=== PATIENT | female | born 1945 | race Caucasian/White ===

== ENCOUNTER 2017-06-10 15:43 | Emergency (ER) | payer OTHER, MEDICARE ==
[~2017-06-10] VITALS: Ht 157.5 cm; Wt 73.6 kg
[2017-06-10] MEDS ORDERED: PERCOCET 5/31 TABLET PO (18:16)
[2017-06-10 18:30] VITALS: BP 163/87
== END 2017-06-10 18:39 | disposition home or self-care (01) ==
LOC: EME 15:43
DX: S52.592A Other fractures of lower end of left radius, initial encounter for closed fracture (principal); S52.615A Nondisplaced fracture of left ulna styloid process, initial encounter for closed fracture; M85.832 Other specified disorders of bone density and structure, left forearm; W00.0XXA Fall on same level due to ice and snow, initial encounter; E03.9 Hypothyroidism, unspecified
CPT/HCPCS: 73100; 73110; 99281; 99284; J3010

== ENCOUNTER → 2017-06-22 | Outpatient (CLI) | payer MEDICARE ==
[~2017-06-22] MED LIST: PERCOCET 5/31 TABLET PO
== END | disposition home or self-care (01) ==
LOC: CDC 14:06
DX: Z01.810 Encounter for preprocedural cardiovascular examination (principal); R94.31 Abnormal electrocardiogram [ECG] [EKG]
CPT/HCPCS: 93000